=== PATIENT | female | born 1975 | race Caucasian/White ===

== ENCOUNTER 2017-02-17 19:02 | Emergency (ER) | payer SELFPAY ==
--- NOTE | 2017-02-17 19:15 | NUR ---
CALLED FOR TRIAGE. STATES "I WILL GO F/U WITH [employer]"; NAD NOTED
== END 2017-02-17 19:38 | disposition left against medical advice (07) ==
LOC: ER 19:05
DX: Z53.21 Procedure and treatment not carried out due to patient leaving prior to being seen by health care provider (principal)